=== PATIENT | male | born 1970 | race Caucasian/White ===

== ENCOUNTER 2019-02-09 08:44 | Observation (INO) ==
[~2019-02-09 08:44] MED LIST: LIDOCAINE W/ SODIUM BICARB 0.5 ML SYR ONE; LIDOCAINE W/ SODIUM BICARB 0.5 ML SYR SUBD PRN; Lactated Ringers 1,000 ML PRIMARY IV ONE; Lactated Ringers 1,000 ML PRIMARY IV SCH; Nasal Sanitizer POPSWAB ampule 3 AMP (Nozin) PREOP DOSE ENOS SCH; ceFAZolin Inj 2gm (Premix) 0 GM/0 ML BAG IV ONE; ceFAZolin Inj 2gm (Premix) 2 GM/50 ML BAG IV ONE
[2019-02-09] MEDS ORDERED: ceFAZolin Inj 3 GM in Sodium Chloride 0.9% 100 ML IV ONE (09:00)
[2019-02-09] MEDS ORDERED: MIDAZOLAM 5 MG/1 ML ONE (10:08)
[2019-02-09] MEDS ORDERED: PROPOFOL 10 MG/1 ML (200 MG/20 ML) VIAL IV ONE ×2 (10:08→13:55)
[2019-02-09] MEDS ORDERED: LIDOCAINE MPF 2% - 5 ML (20 MG/1 ML) ONE (10:08)
[2019-02-09] MEDS ORDERED: fentaNYL Inj 250 MCG/5 ML VIAL ONE (10:08)
[2019-02-09] MEDS ORDERED: BUPivacaine 0.5%/Epi Inj 50 ML VIAL ONE (10:50)
[2019-02-09] MEDS ORDERED: MIDAZOLAM HCL 2 MG/2 ML VIAL ONE (10:50)
[2019-02-09] MEDS ORDERED: ONDANSETRON 4 MG/2 ML VIAL IVP PRN (10:53)
[2019-02-09] MEDS ORDERED: LIDOCAINE HCL 2 % 10 ML JELLY URO-JECT TOPICAL PRN (10:53)
[2019-02-09] MEDS ORDERED: Lactated Ringers 1,000 ML PRIMARY IV SCH (11:00)
[2019-02-09] MEDS ORDERED: EPINEPHrine Inj (1:1,000) 30mg/30ml vial ONE (11:07)
[2019-02-09] MEDS ORDERED: BUPivacaine Inj 0.5% PF (5mg/ml) 30ml vial ONE (11:13)
[2019-02-09] MEDS ORDERED: ROPIVACAINE INFIL SCH ×2 (11:15→11:45)
[2019-02-09] MEDS ORDERED: KETOROLAC 30 MG/1 ML VIAL ONE (13:37)
--- NOTE | 2019-02-09 13:46 | ORTHO.OP ---
Surgery Date: 02/09/19 Preoperative Diagnosis: Left shoulder rotator cuff tear, biceps tendonitis, AC DJD, Impingement Postoperative Diagnosis: Left shoulder retracted rotator cuff tear, biceps tendonitis, AC DJD, Subacromial Impingement Procedure: 1. Left shoulder arthroscopic rotator cuff repair. 2. Left shoulder arthroscopic shoulder debridement. 3. Left Shoulder Arthroscopic Subacromial Decompression. 4. Left Shoulder Arthroscopic AC Resection. 5. Left shoulder open biceps tenodesis. Surgeon: Akil Dickey MD Vascular Technologist Sonographer: AMMY Treadwell Anesthesia Provider: Gregg Greenberg MD Anesthesia Type: General, Regional Complications: None
--- NOTE | 2019-02-09 14:22 | CRNA.PROGR ---
Anesthesia Time - Procedure/Recovery Time Start Date: 02/09/19 End Date: 02/09/19 Anesthesia : Time In: 11:40 Anesthesia : Time Out: 14:22 Anesthesia : Total Time: 162 - Total Anesthesia Time Total Anesthesia Time (minutes): 162 - Other Weight: 141.521 kg Height: 6 ft 2 in Body Mass Index (BMI): 40.0 Physical Status: P2 Anesthesia Type: General Anesthesia : LMA ([facility])
--- NOTE | 2019-02-09 14:23 | CRNA.PROGR ---
Post Anesthesia Phase II - Post Anesthesia Phase II Patient Stable and Discharged To: Phase II ([facility]) Temperature: 97.1 F Pulse Rate: 63 Respiratory Rate: 18 Blood Pressure: 138/104 Pulse Ox: 94 Total Murali Score at Discharge: 9 Post Anesthesia Discharge Criteria Met: Yes
[2019-02-09] MEDS ORDERED: HYDROmorphone 2 MG/1 ML ONE (14:34)
[2019-02-09] MEDS ORDERED: HYDROmorphone 2 MG/1 ML IVP PRN (14:39)
[2019-02-09] MEDS: HYDROmorphone 2 MG/1 ML IVP PRN ×2 (14:40→15:15)
[2019-02-09] MEDS ORDERED: ONDANSETRON 4 MG/2 ML VIAL ONE ×2 (16:09→19:27)
[2019-02-09] MEDS: ONDANSETRON 4 MG/2 ML VIAL IVP PRN ×2 (16:10→19:27)
[2019-02-09] MEDS: MORPHINE SULFATE 2 MG/1 ML IVP PRN ×2 (19:18→21:46)
[2019-02-09] MEDS ORDERED: Metoclopramide Inj 10 MG/2 ML VIAL IVP PRN (19:43)
--- NOTE | 2019-02-09 19:45 | CONSULT ---
Consult Note - Consult Consult Date: 02/09/19 Reason for Consult: PostOp Consulation : Ortho Requesting Physician: Dr. Dickey Primary Care Provider: Ishan Chilel MD - History of Present Illness History of Present Illness: This is a 48 year old male with medical history significant for history of rotator cuff tear who came into the hospital to have surgery and was done by Dr. Dickey the hospitalist service were consulted post surgery. Patient had nausea and some lightheadedness he said. He did not urinate he said since he had surgery. He said in the past he had had to have a Ortiz catheter in the 3 previous surgeries. It was noted that his blood pressure was also elevated postsurgery he said he doesn't have a history of high blood pressure and he is not on any medication. No chest pain, no shortness of breath. Mild headache. Past Medical History Medical History: No history of hypertension, no diabetes and no heart disease Surgical History: 1. Left knee arthroscopy with quadricep tendon repair 2015. 2. History of rhinoplasty. 3. History of left shoulder surgery before Family History: Reviewed an Not Pertinent Past Social History: Does not smoke, drink occasionally no drugs. Tobacco Use: Never Smoker In the Past 12 Months, Have Used or Abuse Any of the Following Substance: None Review of Systems - Review of Systems All Systems: Reviewed & No Additional Complaints Except as Stated Medication / Allergies Home Medications: Home Medications Medication Instructions Recorded Confirmed indomethacin 50 mg capsule 50 mg PO TID PRN cap 01/09/18 02/06/19 ibuprofen 200 mg tablet 200 mg PO Q4-6H PRN 09/25/18 02/06/19 Hydrocodone/Acetaminophen [Vader 1 - 2 tab PO Q6H PRN #40 tab 02/09/19 5-325 Tablet] Naproxen 500 mg PO BID #60 tab 02/09/19 Ondansetron Odt [Zofran ODT] 4 mg PO Q6H PRN #14 tab 02/09/19 Allergies/Adverse Reactions: Allergies Allergy/AdvReac Type Severity Reaction Status Date / Time No Known Allergies Allergy Verified 02/09/19 09:09 Exam - Vitals Vital Signs: Vital Signs Temperature 96.8 F Pulse Rate [Pulse Oximeter] 80 Pulse Rate 81 Respiratory Rate 18 Blood Pressure [Right Arm] 173/112 Blood Pressure 137/96 Pulse Ox 95 Oxygen Flow Rate 1L Oxygen Delivery Method Room Air Height 6 ft 2 in Weight 312 lb - General General Appearance: No Acute Distress, Cooperative, Morbidly Obese - Head Head Exam: Normal Inspection - Eye Eye Exam: POSITIVE: Normal Appearance - ENT ENT Exam: POSITIVE: Normal Exam - Neck Neck Exam: Normal Inspection - Respiratory Respiratory Exam: POSITIVE: Clear to Auscultation - Bilaterally - Cardiovascular Cardiovascular Exam: POSITIVE: RRR - GI/Abdominal GI/Abdominal Exam: POSITIVE: Normal Bowel Sounds, Non Tender, Non Distended, Soft, No Organomegaly - Rectal Rectal Exam: POSITIVE: Deferred - External Exam: POSITIVE: Deferred - Extremities Additional Extremities Exam Details: Left shoulder in a brace - Neurological Neurological Exam: POSITIVE: Alert, Oriented x 3, CN II-XII Intact, No Facial Droop, Speech Intact / Clear - Psychiatric Psychiatric Exam: POSITIVE: Normal Affect Assessment and Plan - Patient Problems (1) Left rotator cuff tear Current Visit: No Status: Acute Comment: He is status post status post surgery for pain Dr. Dickey wrote for pain medication. He did receive Zofran and he is somewhat nauseated will write for Reglan. Regarding the blood pressure elevation I think will watch him we'll see what happens after receiving the pain medication and after the Ortiz catheter and see whether it need to be treated. will order some labs as I don't see any new labs. Code(s): M75.102 - Unspecified rotator cuff tear or rupture of left shoulder, not specified as traumatic
[2019-02-10] MEDS: HYDROcodone-APAP 5 MG -325 MG TABLET PO PRN ×4 (00:11→12:06)
[2019-02-10 04:59] LABS: BASOPHILS # (AUTO) 0.01 10*3/UL; BASOPHILS % (AUTO) 0.1 % (0-1); EOSINOPHILS # (AUTO) 0 10*3/UL; EOSINOPHILS % (AUTO) 0 % (0-8); Hematocrit [HCT] 47.7 % (42.0-52.0); Hemoglobin [HGB] 15.9 g/dL (14.0-18.0); MEAN CORPUSCULAR HGB CONC 33.3 g/dL (33-37); MEAN CORPUSCULAR VOLUME 90.2 FL (80-90); MEAN PLATELET VOLUME 11.1 FL (7.4-12.2); MONOCYTES % (AUTO) 4.3 % (5-15); NEUTROPHILS # (AUTO) 10.23 10*3/UL; NEUTROPHILS % (AUTO) 87.6 % (50-80); RED BLOOD COUNT 5.29 10^6/uL (4.70-6.10)
[2019-02-10 05:09] LABS: BLOOD UREA NITROGEN 19 mg/dL (7-22); BUN/CREATININE RATIO 17.27 (6-20)
[2019-02-10 05:19] LABS: PLATELET MORPHOLOGY COMMENT NORMAL MORPHOLOGY (NORM); RBC MORPHOLOGY COMMENT NORMAL MORPHOLOGY (NORM); WBC MORPHOLOGY COMMENT NORMAL MORPHOLOGY (NORM)
[2019-02-10 08:26] VITALS: BP 141/84; RESP 18; TEMP 98.1; O2SAT 97
--- NOTE | 2019-02-10 11:08 | EKG ---
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
--- NOTE | 2019-02-10 11:54 | DCSUMMARY ---
Hospitalization Summary Admit Date: 02/09/2019 Discharge Date: 02/10/19 Primary Diagnosis:: status post left shoulder surgery Hospital Course: This very pleasant 48-year-old male who had left shoulder surgery done by Dr. Dickey. Postoperatively, he had elevated blood pressures without a diagnosis of hypertension that were probably pain related. They have normalized overnight. The patient had some nausea that is resolved now. He had some chest heaviness that he attributed to his shoulder surgery and felt that it was radiated pain. I did do a heart enzyme which was negative and an EKG which showed some nonspecific ST/T-wave changes in V2, V3, V6, and in lead 1 and 2. We felt a stress test would be the best thing to evaluate this and will do that in 6 weeks and the patient is out of his brace for his shoulder although the patient should report to his doctor and I discussed that with him and his and his father present should he have continued pain in the next 1-2 weeks. Assessment and Plan: 1. As per discharge assessments noted 2. Disposition: Patient is discharged home. 3. Condition on discharge, stable and improved. 4. Diet: regular diet 5. Activities: Continue with brace on left shoulder as discussed with Dr. Dickey and the patient. Physical therapy as per Dr. Dickey's instructions 6. Follow-Up: 1. Dr. Jain one week 2. Dr. Dickey as arranged 7. Medications at the Time of Discharge: Home Medications Medication Instructions Recorded Confirmed indomethacin 50 mg capsule 50 mg PO TID PRN cap 01/09/18 02/06/19 Hydrocodone/Acetaminophen [Sycamore 1 - 2 tab PO Q6H PRN #40 tab 02/09/19 5-325 Tablet] Naproxen 500 mg PO BID #60 tab 02/09/19 Ondansetron Odt [Zofran ODT] 4 mg PO Q6H PRN #14 tab 02/09/19 8. Observation discharge This report was transcribed using [employer] voice recognition. Despite editing, there may be grammatical and/or typographical errors in this assembly instructions writer report due to the limitations inherent with voice activated and speech recognition software. Exam - Vitals Vital Signs: Vital Signs Temperature 98.1 F Temperature Source Oral Pulse Rate [Pulse Oximeter] 84 Pulse Rate 81 Respiratory Rate 18 Blood Pressure [Right Arm] 141/84 Blood Pressure 137/96 Pulse Ox 97 Oxygen Flow Rate 1 Oxygen Delivery Method Room Air Height 6 ft 2 in Weight 319 lb - General General Appearance: No Acute Distress, Cooperative - Head Head Exam: Normal Inspection, Normocephalic, Atraumatic - Eye Eye Exam: POSITIVE: No Scleral Icterus - ENT ENT Exam: POSITIVE: Mucous Membranes Moist - Neck Neck Exam: JVP is not Raised - Respiratory Respiratory Exam: POSITIVE: Clear to Auscultation - Bilaterally, Breathing Non Labored - Cardiovascular Cardiovascular Exam: POSITIVE: RRR, No Murmur, No Clicks, No Gallops, No Rubs, No JVD - GI/Abdominal GI/Abdominal Exam: POSITIVE: Normal Bowel Sounds, Non Tender, Non Distended, Soft - Extremities Extremities Exam: POSITIVE: No Clubbing Present, No Edema Present, No Cyanosis Present Additional Extremities Exam Details: Left shoulders is in a brace. - Neurological Neurological Exam: POSITIVE: Alert, Oriented x 3, No Facial Droop, Speech Intact / Clear - Psychiatric Psychiatric Exam: POSITIVE: Normal Affect, Normal Mood Data Peritnent Studies: Laboratory Results 02/10/19 02/10/19 02/10/19 04:33 04:33 10:55 WBC 11.67 H RBC 5.29 Hgb 15.9 Hct 47.7 MCV 90.2 H MCH 30.1 MCHC 33.3 RDW Std Deviation 44.9 RDW Coeff of Raya 13.6 Plt Count 180 MPV 11.1 Immature Gran % (Auto) 0.3 Neut % (Auto) 87.6 H Lymph % (Auto) 7.7 L Nolan % (Auto) 4.3 L Eos % (Auto) 0 Baso % (Auto) 0.1 Immature Gran # (Auto) 0.03 Neut # (Auto) 10.23 Lymph # (Auto) 0.90 Nolan # (Auto) 0.50 Eos # (Auto) 0 Baso # (Auto) 0.01 WBC Morphology Comment Normal morphology Plt Morphology Comment Normal morphology RBC Morph Comment Normal morphology Sodium 140 Potassium 4.3 Chloride 108 Carbon Dioxide 22 L Anion Gap 10 BUN 19 Creatinine 1.1 Estimated GFR > 60 BUN/Creatinine Ratio 17.27 Glucose 144 H Calculated Osmolality 294.0 H Calcium 9.0 Troponin I Handheld 0.000 Patient Problems - Patient Problem List (1) S/P rotator cuff repair Current Visit: Yes Status: Acute Code(s): Z98.890 - Other specified postprocedural states Category: Surgical (2) Elevated blood pressure reading Current Visit: Yes Status: Acute Code(s): R03.0 - Elevated blood-pressure reading, without diagnosis of hypertension Category: Medical (3) Gouty arthropathy Current Visit: Yes Status: Chronic Code(s): M10.9 - Gout, unspecified Category: Medical
--- NOTE | 2019-02-10 12:43 | ORTHO.PROG ---
Last Taken Vital Signs: Vital Signs - Last Taken Temperature 98.1 F 02/10/19 08:25 Pulse Rate 84 02/10/19 08:25 Respiratory Rate 18 02/10/19 08:25 Blood Pressure 141/84 02/10/19 08:25 Pulse Ox 97 02/10/19 08:25 Subjective: Postop day #1 Status post left shoulder arthroscopic rotator cuff repair with open biceps tenodesis, arthroscopic subacromial decompression and distal clavicle excision with Dr. Mario Dickey, 02/09/2019. Patient doing well today. He states he had trouble urinating last night so they had to do a Ortiz catheter but since then he's had no trouble with urination. Chest still feels slightly heavy but otherwise denies shortness of breath, chest pain, diaphoresis, jaw pain, arm pain or any other cardiac symptoms. Nursing reports O2 sat 96% on room air this morning and throughout the night. The left shoulder pain is tolerable at this point. He states his left eye in voice seem to be improving after the pain catheter was removed. He did have some episodes of nausea in the night with some vomiting so he is a little sore from that as well. Overall this morning is doing much better. Objective: Well-developed, well-nourished, no acute distress. Alert and oriented 3. Voice less raspy today and no apparent eyelid asymetry. Gunslinger brace in place in the left shoulder. Dressings are clean and intact. Distal neurovascular intact. Assessment: Status post left arthroscopic rotator cuff repair, open biceps tenodesis, subacromial decompression, arthroscopic distal clavicle excision on 02/09/[address] Dickey, doing better today. Interscalene block resolving which was affecting the phrenic nerve. Plan: Patient cleared from the orthopedic standpoint. He will continue care with the hospitalist until they have cleared him for discharge. Medications as ordered including Naprosyn BID, hydrocodone and Zofran as written; call for refills if needed. He will continue to ice 3 times a day at least for 20 minutes for the next 3 weeks. May work on gentle elbow range of motion but no resisted elbow flexion for 6 weeks. Follow-up on 02/13/19, with Dr. Dickey in his office, sooner when necessary. Call me anytime for concerns. F/u with primary per hospitalists. Patient understands agrees with plan - Patient Problems (1) S/P rotator cuff repair Current Visit: Yes Status: Acute Code(s): Z98.890 - Other specified postprocedural states
--- NOTE | 2019-02-10 16:23 | OT PM DAY ---
PM - Occupational Therapy S: The patient was in post-op upon the therapist's arrival. They needed assistance with brace adjustment and positioning needs. O: The therapist adjusted multiple straps on the patient's shoulder brace today. The therapist educated the patient's on positioning needs. They may or may not stay tonight. The patient was nauseous at time of treatment. A: Later on, the therapist did learn that the patient will be transferred to the floor. We will continue with ADLs in the morning. P: Continue seeing patient per plan of care. NADEEMD
== END 2019-02-10 13:01 | disposition home or self-care (01) ==
LOC: OR 08:44 → MED/SURG 08:44 → OPS 08:45
PROVIDERS: ADMIT Orthopaedic Surgery Sports Medicine; ATTEND Orthopaedic Surgery Sports Medicine